=== PATIENT | female | born 1945 | race Caucasian/White ===

== ENCOUNTER 2016-11-25 19:00 | Inpatient (IN) | payer MEDICARE, OTHER ==
[2016-11-25] MEDS ORDERED: Acetaminophen TAB* 325 MG PO ONE (19:29)
[2016-11-25] MEDS ORDERED: NS 0.9% 1000 ML* 1,000 ML IV SCH ×2 (19:30→21:30)
[2016-11-25 19:45] LABS: Hematocrit 43 % (35-47); Hemoglobin 14.4 g/dl (12.0-16.0); Mean Corpuscular HGB Conc 34 g/dl (31-36); Mean Corpuscular Hemoglobin 30 pg (27-31); Mean Corpuscular Volume 91 fL (80-97); Mean Platelet Volume 8 um3 (7.4-10.4); Red Blood Count 4.73 10^6/ul (4.0-5.4); Red Cell Distribution Width 13 % (10.5-15); White Blood Count 6.1 10^3/ul (3.5-10.8)
--- NOTE | 2016-11-25 20:11 | RAD ---
HISTORY: Cough COMPARISONS: November 02, 2009 VIEWS: 2: Frontal dual-energy and lateral views of the chest. FINDINGS: CARDIOMEDIASTINAL SILHOUETTE: The cardiomediastinal silhouette is normal. BRENDAN: The brendan are normal. PLEURA: The costophrenic angles are sharp. No pleural abnormalities are noted. LUNG PARENCHYMA: The lungs are clear. ABDOMEN: The upper abdomen is clear. There is no subphrenic gas. BONES AND SOFT TISSUES: No bone or soft tissue abnormalities are noted. OTHER: None. IMPRESSION: NO ACTIVE CARDIOPULMONARY DISEASE.
[2016-11-25 20:12] LABS: BUN/Creatinine Ratio 13.9 (8-20); Calcium 10.7 mg/dL (8.6-10.3); EGFR African American 59.8 (>60); EGFR Non-African American 46.5 (>60); Globulin 3.5 g/dL (2-4); Magnesium 2.1 mg/dL (1.9-2.7); Total Bilirubin 0.8 mg/dL (0.2-1.0); Total Protein 7.5 g/dL (6.4-8.9)
[2016-11-25 20:22] LABS: Troponin I 0.28 ng/mL (<0.04)
[2016-11-25 20:34] LABS: TSH (Thyroid Stimulating Horm) 3.6 mcIU/mL (0.34-5.60)
--- NOTE | 2016-11-25 20:49 | ED ---
Cole Taveras Benjamin, scribed for Ashok Carrillo MD on 11/25/16 at 1932 . Complex/Multi-Sys Presentation - HPI Summary HPI Summary: 71yo female c/o having chills for 2 days. Pt had chills episodically initially, but now is constant and continuous. Per daughter, pt also has dry cough, and had difficulty staying awake in the past 2 dasy. Denies any other symptoms or pain. Pt took baby [employer]. Recent Hx of cardiac stent placement after episode of [place] on November 13, 2016. - History Of Current Complaint Chief Complaint: EDGeneral Time Seen by Provider: 11/25/16 19:20 Hx Obtained From: Patient, Family/Talend Etl Developer - daughter Onset/Duration: Gradual Onset, Lasting Days - 2 days, Still Present Timing: Constant Severity Currently: Mild Severity Initially: Mild Location: Negative Aggravating Factor(s): none Alleviating Factor(s): none Associated Signs And Symptoms: Positive: Cough - dry, Other - chills - Allergies/Home Medications Allergies/Adverse Reactions: Allergies Allergy/AdvReac Type Severity Reaction Status Date / Time Statins AdvReac Severe See Comment Verified 07/28/15 16:45 Home Medications: Home Medications Insulin GLARGINE(*) [Lantus(*)] 40 units SUBCUT Q24H 11/25/16 [History Confirmed 11/25/16] PMH/Surg Hx/FS Hx/Imm Hx Endocrine/Hematology History: Reports: Hx Diabetes - uncontrolled, untreated Denies: Hx Anemia Cardiovascular History: Reports: Hx Coronary Artery Disease, Hx Hypercholesterolemia, Hx Myocardial Infarction - x3 Denies: Hx Angina, Hx Hypertension, Hx Valvular Heart Disease Respiratory History: Denies: Hx Asthma, Hx Chronic Obstructive Pulmonary Disease (COPD) GI History: Denies: Hx Jaundice Musculoskeletal History: Denies: Hx Osteoporosis Sensory History: Reports: Hx Contacts or Glasses - to read Denies: Hx Hearing Aid Opthamlomology History: Reports: Hx Contacts or Glasses - to read Psychiatric History: Reports: Hx Depression - SAD - Cancer History Hx Chemotherapy: No Hx Radiation Therapy: No - Surgical History Surgery Procedure, Year, and Place: stent placed in heart, 2x, 2005,2006. 1993 hysterectomy. appendectomy 1982 Hx Anesthesia Reactions: No - Immunization History Date of Tetanus Vaccine: Unk Date of Influenza Vaccine: None Infectious Disease History: No Infectious Disease History: Denies: Traveled Outside the [place] in Last 30 Days - Family History Known Family History: Positive: Cardiac Disease, Diabetes - Social History Occupation: Retired Lives: With Family Alcohol Use: Rare Substance Use Type: Reports: None Smoking Status (MU): Never Smoked Tobacco Review of Systems Positive: Chills, Fatigue Eyes: Negative ENT: Negative Cardiovascular: Negative Positive: Cough Gastrointestinal: Negative Genitourinary: Negative Musculoskeletal: Negative Skin: Negative Neurological: Negative Psychological: Normal All Other Systems Reviewed And Are Negative: Yes Physical Exam Triage Information Reviewed: Yes Vital Signs On Initial Exam: Initial Vitals Temp Pulse Resp BP Pulse Ox 99.8 F 79 16 118/68 99 11/25/16 19:04 11/25/16 19:04 11/25/16 19:04 11/25/16 19:04 11/25/16 19:04 Vital Signs Reviewed: Yes Appearance: Positive: Well-Appearing, No Pain Distress Skin: Positive: Warm Head/Face: Positive: Normal Head/Face Inspection Eyes: Positive: EOMI, GLENDY ENT: Positive: Hearing grossly normal Neck: Positive: Supple, Nontender Respiratory/Lung Sounds: Positive: Clear to Auscultation, Breath Sounds Present Cardiovascular: Positive: RRR Abdomen Description: Positive: Nontender, Soft Bowel Sounds: Positive: Present Musculoskeletal: Positive: Strength/ROM Intact Neurological: Positive: Sensory/Motor Intact, Alert, Oriented to Person Place, Time Psychiatric: Positive: Affect/Mood Appropriate Diagnostics - Vital Signs Vital Signs Temp Pulse Resp BP Pulse Ox 11/25/16 19:21 78 13 98 11/25/16 19:19 124/65 11/25/16 19:08 99.8 F 79 16 118/68 99 11/25/16 19:04 99.8 F 79 16 118/68 99 - Laboratory Lab Results: Lab Results 11/25/16 11/25/16 11/25/16 Range/Units 19:38 19:38 19:38 WBC 6.1 (3.5-10.8) 10^3/ul RBC 4.73 (4.0-5.4) 10^6/ul Hgb 14.4 (12.0-16.0) g/dl Hct 43 (35-47) % MCV 91 (80-97) fL MCH 30 (27-31) pg MCHC 34 (31-36) g/dl RDW 13 (10.5-15) % Plt Count 251 (150-450) 10^3/ul MPV 8 (7.4-10.4) um3 Neut % (Auto) 79.6 (38-83) % Lymph % (Auto) 10.1 L (25-47) % [place] % (Auto) 9.0 (1-9) % Eos % (Auto) 0.4 (0-6) % Baso % (Auto) 0.9 (0-2) % Absolute Neuts (auto) 4.9 (1.5-7.7) 10^3/ul Absolute Lymphs (auto) 0.6 L (1.0-4.8) 10^3/ul Absolute Monos (auto) 0.6 (0-0.8) 10^3/ul Absolute Eos (auto) 0 (0-0.6) 10^3/ul Absolute Basos (auto) 0.1 (0-0.2) 10^3/ul Absolute Nucleated RBC 0.01 10^3/ul Nucleated RBC % 0.2 Sodium 131 L (133-145) mmol/L Potassium 5.0 (3.5-5.0) mmol/L Chloride 101 (101-111) mmol/L Carbon Dioxide 25 (22-32) mmol/L Anion Gap 5 (2-11) mmol/L BUN 16 (6-24) mg/dL Creatinine 1.15 H (0.51-0.95) mg/dL Est GFR ( Amer) 59.8 (>60) Est GFR (Non-Af Amer) 46.5 (>60) BUN/Creatinine Ratio 13.9 (8-20) Glucose 130 H (70-100) mg/dL Lactic Acid 1.0 (0.5-2.0) mmol/L Calcium 10.7 H (8.6-10.3) mg/dL Magnesium 2.1 (1.9-2.7) mg/dL Total Bilirubin 0.80 (0.2-1.0) mg/dL AST 19 (13-39) U/L ALT 21 (7-52) U/L Alkaline Phosphatase 75 (34-104) U/L Troponin I 0.28 H* (<0.04) ng/mL Total Protein 7.5 (6.4-8.9) g/dL Albumin 4.0 (3.2-5.2) g/dL Globulin 3.5 (2-4) g/dL Albumin/Globulin Ratio 1.1 (1-3) TSH 3.60 (0.34-5.60) mcIU/mL Result Diagrams: 11/25/16 19:38 11/25/16 19:38 Lab Statement: Any lab studies that have been ordered have been reviewed, and results considered in the medical decision making process. - Radiology CXR Xray Interpretation: No Acute Changes Radiology Interpretation Completed By: Radiologist - EKG 2021 Cardiac Rate: NL - 70bpm EKG Rhythm: Sinus Rhythm EKG Interpretation: inferior wall NJ, old Complex Multi-Symp Course/Dx Course Of Treatment: Discussed with Dr. hSaw (hospitalist) at 2044. - Diagnoses Provider Diagnoses: ACS (acute coronary syndrome) - Physician Notifications Instructed by Provider To: Admit As Inpatient Discharge - Discharge Plan Condition: Fair Disposition: ADMITTED TO [facility] The documentation as recorded by the Cole back Benjamin accurately reflects the service I personally performed and the decisions made by Lorena ashley David, MD.
[2016-11-25] MEDS ORDERED: Ondansetron INJ* 2 MG/ML VIAL IV PRN (21:18)
[2016-11-25] MEDS ORDERED: Dextrose 50% Syringe 50 ML* 25 GM/50 ML SYRINGE IV PUSH PRN (21:18)
[2016-11-25] MEDS ORDERED: NS 0.9% 1000 ML* 1,000 ML IV ONE (21:18)
[2016-11-25 21:48] LABS: C Reactive Protein 32.35 mg/L (< 5.00)
[2016-11-25 21:57] LABS: Urine Bacteria Absent (Absent); Urine Bilirubin Negative (Negative); Urine Glucose Negative (Negative); Urine Nitrite Negative (Negative)
[2016-11-25 22:11] LABS: Erythrocyte Sed Rate 45 mm/Hr (0-40)
[2016-11-25] MEDS: Heparin VIAL(*) 5000 UNITS/ML VIAL (FIVE THOUSAND) SUBCUT SCH (22:36)
--- NOTE | 2016-11-25 23:34 | HP ---
CC: Dr. Nicholas; Dr. Yap; Dr. Minaya; Dr. Verdin * HISTORY AND PHYSICAL: DATE OF ADMISSION: 11/25/16 PRIMARY CARE PROVIDER: Dr. Yap. ATTENDING PHYSICIAN WHILE IN THE HOSPITAL: Dr. Tin John * (report dictated by Evgeny Mcmillan NP). CONSULTING INFECTIOUS DISEASE: Dr. Verdin. CHIEF COMPLAINT: 1. Fatigue. 2. Weakness. HISTORY OF PRESENT ILLNESS: This is a 71-year-old female patient who on November 13 presented with STEMI, underwent an intervention to the RCA. I will refer you to Dr. Nicholas' cath report for details. She was discharged shortly after on the , been doing well. Over the last 72 hours, she has been having weakness, fatigue, just cannot get warm. On the two 90-degree days, she was covered up in blankets and could not get warm, having chills. She does state that she has had a cough. She says that she feels like she has been wheezing at times. She has not had any sore throat. She has not had any abdominal discomfort. She denied having any nausea, vomiting or diarrhea. Denies any chest pain or any orthopnea. She denied having any fluid in her lower extremities and denied having any pain in the lower extremities. She was concerned because of the weakness, so she came into the ER today. It was noted that her troponin was 0.28. Her EKG did have some T wave inversions which appeared to be new in leads II, III and aVF, but the patient ultimately called Dr. Singer today who felt that she should be evaluated in the ER. She denies any dysuria, no abdominal pain, and again she says she does not have any redness at her wrist site from where the cath was performed. She was evaluated and it was noted she had a fever of 101.7 here in the ED, and we were asked to evaluate for admission. PAST MEDICAL HISTORY: 1. CAD. 2. FL. 3. Diabetes. 4. Hyperlipidemia. PAST SURGICAL HISTORY: 1. She has had cardiac catheterization x3. 2. Hysterectomy. HOME MEDICATIONS: According to the discharge summary include: 1. Nitro 0.4 mg sublingual q.5 minutes p.r.n. chest pain. 2. According to the patient, she is taking Lantus 40 units subcu at bedtime. 3. Vitamin B12 1000 mcg p.o. daily. 4. Vitamin D3 2000 units p.o. daily. 5. Vitamin C 500 mg daily. 6. Vitamin B complex 1 tablet p.o. daily. 7. Turmeric 500 mg daily. 8. Protonix 40 mg daily. 9. Toprol XL 50 mg p.o. daily. 10. Lisinopril 5 mg p.o. daily. 11. Plavix 75 mg daily. 12. Aspirin 81 mg daily. ALLERGIES TO MEDICATIONS: STATINS. FAMILY HISTORY: Her mother had a history of colon cancer. Father's history is unknown. SOCIAL HISTORY: She does not smoke. Does not drink. Surrogate decision maker is her daughter and her neighbor. REVIEW OF SYSTEMS: There is a documented fever here. She did admit to having chills. There is no significant weight change. There is no double vision. She denied having any ear discharge. There was no rhinorrhea. No sore throat. No thyroid enlargement. Denies having any chest pain. There was no orthopnea , no nocturnal dyspnea. There was no abdominal pain. No nausea, no vomiting. No dysuria, no frequency. There was no seizure, no loss of consciousness. No pruritus and no skin ulcerations. Review of 14 systems completed and all others negative. PHYSICAL EXAMINATION GENERAL: At this time, Mrs. Neal is a 71-year-old female patient. She is sitting in the ER stretcher. She does not appear to be in any acute distress. VITAL SIGNS: Blood pressure 94/54, pulse 67, respirations 16, O2 sat 95%, temperature is 101.7. HEENT: Head is atraumatic. Eyes: EOMs intact. Sclerae is anicteric, not pale. Throat: Oral mucosa appears to be dry. No oropharyngeal erythema. NECK: Supple. LUNGS: Clear to auscultation. No wheezes, rales, or rhonchi. HEART: Sounds S1, S2. Regular rate and rhythm. No murmurs, rubs or gallops. ABDOMEN: Soft. It was flat. It was nontender. Bowel sounds present. EXTREMITIES: Pulses were 2+ throughout. She is able to move all 4 extremities with 5/5 strength. She does have a puncture site to the right wrist which is clean, dry and intact. There is no erythema. Had 5/5 strength. NEUROLOGIC: The patient is awake, alert, oriented x3. Tongue midline. Sales Coordinator are equal. No gross focal deficits. SKIN: The skin is grossly intact. DIAGNOSTIC STUDIES/LABORATORY DATA: The labs today revealed a WBC 6.1, RBC of 4.73, hemoglobin 14.4, hematocrit 43, platelet count of 251. Sodium 131, potassium 5.0, chloride of 101, bicarb 28, BUN 16, creatinine is 1.15. Her last creatinine was 0.9, she runs right around 1. Her glucose is 130, lactate 1.0, calcium 10.7, total mag 2.1, total bili 0.8. AST 19, ALT 21, alk phos 75. CK 33, CPK 1 which are all trending down. Troponin was 0.28. CRP is pending. Albumin of 4.0. TSH pending. She did have an EKG obtained today, which revealed a normal sinus rhythm with a rate of 70. She had T-wave inversions in II, III and aVF. When I reviewed the previous EKG , she had biphasic T waves and she had a little bit of elevation remaining on II , III and aVF. Otherwise, EKG appeared to be unchanged. Her cath report, I will refer you for details, but ultimately there was a stent placed in the RCA, it was a bare metal stent and she also had an LV-gram that showed EF of 49%. Old medical records were reviewed. She had a chest x-ray obtained today, which showed no active cardiopulmonary disease. I did not appreciate any infiltrates under my review. Old medical records were reviewed. ASSESSMENT AND PLAN: Mrs. Neal is a 71-year-old female patient coming into the ER today. She is about 2 weeks post cath, now found to have a fever, complaining of weakness. She will be admitted under inpatient status for: 1. Sepsis of unknown etiology. Again, I do not have an active source at this point, but I do think we need to get blood cultures. We need to get urine as well. I am going to give her one dose of Zosyn after the cultures. Her blood pressures are actually now, the last one was 87/50. I am going to give her 2 liters of fluids. She got one here in the ER already. I am going to give her another one and then normal saline at 100. We will panculture her. I did touch base with ID who will evaluate the patient tomorrow. We will place her in the ICU under close observation and care and we will continue to follow. 2. Coronary artery disease. I am going to continue her Plavix and aspirin. Holding the lisinopril. We are going to switch her beta conchis from the sustained release to the IR release with hold parameters. 3. History of diabetes. She will be on Lantus and Lispro sliding scale. 4. Hyperlipidemia. She can follow with her primary. 5. DVT prophylaxis. She will be placed on heparin subcu. 6. Code status. Full code. 7. Fluids, electrolytes and nutrition. She can have a consistent carb diet. TIME SPENT: Time spent on the admission, 60 minutes; greater than half the time spent [id number] with the patient obtaining my history and physical, other half the time spent going over the plan of care with the patient and implementing the plan of care. I did discuss the plan of care with my attending, Dr. John; he is in agreement. EVGENY MCMILLAN, JARROD [id number]/CPS #: [id number] MARCELLA
[2016-11-25] MEDS: Insulin GLARGINE(*) 1 UNITS UNIT SUBCUT SCH (23:38)
[2016-11-26] MEDS: Acetaminophen TAB* 325 MG PO PRN ×2 (01:47→06:28)
[2016-11-26 04:57] LABS: Hematocrit 41 % (35-47); Hemoglobin 13.8 g/dl (12.0-16.0); Mean Corpuscular HGB Conc 34 g/dl (31-36); Mean Corpuscular Hemoglobin 31 pg (27-31); Mean Corpuscular Volume 91 fL (80-97); Mean Platelet Volume 8 um3 (7.4-10.4); Red Blood Count 4.49 10^6/ul (4.0-5.4); Red Cell Distribution Width 13 % (10.5-15); White Blood Count 7.8 10^3/ul (3.5-10.8)
[2016-11-26 05:08] LABS: BUN/Creatinine Ratio 15.7 (8-20); Calcium 9.5 mg/dL (8.6-10.3); EGFR African American 68.7 (>60); EGFR Non-African American 53.4 (>60); Potassium 4.1 mmol/L (3.5-5.0)
[2016-11-26] MEDS: Heparin VIAL(*) 5000 UNITS/ML VIAL (FIVE THOUSAND) SUBCUT SCH ×3 (06:20→21:13)
[2016-11-26] MEDS: CMCS Pantoprazole TAB (NF) 40 MG TAB PO SCH ×2 (08:35→09:31)
[2016-11-26] MEDS: Insulin LISPRO* 1 UNITS UNIT SUBCUT SCH ×3 (08:43→18:19)
[2016-11-26] MEDS: Aspirin Low Dose CHEW TAB* 81 MG PO SCH (09:28)
[2016-11-26] MEDS: Metoprolol Tartrate TAB* 25 MG PO SCH ×2 (09:28→19:53)
[2016-11-26] MEDS: Clopidogrel TAB* 75 MG PO SCH (09:28)
--- NOTE | 2016-11-26 10:02 | PN ---
Subjective Date of Service: 11/26/16 Interval History: Pt is feeling much better today than yesterday. She states her mental status is dramatically better (much more alert and appropriate speech). She denies any chest pain, SOB, cough, dysuria, diarrhea. Her wrist site for her catheterization earlier this month has not been painful or concerning. Objective Active Medications: Acetaminophen (Tylenol Tab*) 650 mg PO Q4H PRN PRN Reason: FEVER/PAIN Last Admin: 11/26/16 06:28 Dose: 650 mg Aspirin (Aspirin Low Dose Tab*) 81 mg PO DAILY [facility] Last Admin: 11/26/16 09:28 Dose: 81 mg Clopidogrel Bisulfate (Plavix Tab*) 75 mg PO DAILY [facility] Last Admin: 11/26/16 09:28 Dose: 75 mg Dextrose (D50w Syringe 50 Ml*) 12.5 gm IV PUSH .FOR FS < 60 - SS PRN PRN Reason: FS < 60 Heparin Sodium (Porcine) (Heparin Vial(*)) 5,000 units SUBCUT Q8HR [facility] Last Admin: 11/26/16 06:20 Dose: 5,000 units Sodium Chloride (Ns 0.9% 1000 Ml*) 1,000 mls @ 100 mls/hr IV PER RATE [facility] Last Admin: 11/26/16 09:02 Dose: 100 mls/hr Insulin Glargine (Lantus(*)) 40 units SUBCUT Q24H [facility] Last Admin: 11/25/16 23:38 Dose: 40 units Insulin Human Lispro (Humalog*) 0 units SUBCUT AC [facility] PRN Reason: Protocol Last Admin: 11/26/16 08:43 Dose: Not Given Metoprolol Tartrate (Lopressor Tab*) 25 mg PO BID [facility] Last Admin: 11/26/16 09:28 Dose: Not Given Ondansetron HCl (Zofran Inj*) 4 mg IV Q6H PRN PRN Reason: NAUSEA Pantoprazole Sodium (Protonix Tab (Nf)) 40 mg PO 0730 [facility] Last Admin: 11/26/16 09:31 Dose: 40 mg Vital Signs 11/25/16 11/25/16 11/25/16 21:19 21:30 21:37 Temperature 101.7 F Pulse Rate 64 65 Respiratory 15 14 Rate Blood Pressure 69/51 87/53 (mmHg) O2 Sat by Pulse 96 95 Oximetry 11/25/16 11/25/16 11/25/16 21:40 22:00 22:04 Temperature 101.7 F Pulse Rate 62 60 63 Respiratory 13 16 19 Rate Blood Pressure 83/53 84/53 (mmHg) O2 Sat by Pulse 95 97 97 Oximetry 11/25/16 11/25/16 11/25/16 22:08 22:16 22:30 Temperature 98.8 F Pulse Rate 72 64 Respiratory 18 11 Rate Blood Pressure 93/55 90/56 93/55 (mmHg) O2 Sat by Pulse 100 98 Oximetry 11/25/16 11/25/16 11/25/16 22:52 23:00 23:06 Temperature Pulse Rate 66 80 Respiratory 18 14 21 Rate Blood Pressure 88/51 102/60 (mmHg) O2 Sat by Pulse 98 98 Oximetry 11/25/16 11/25/16 11/25/16 23:23 23:24 23:30 Temperature Pulse Rate 64 Respiratory 10 12 Rate Blood Pressure 93/56 (mmHg) O2 Sat by Pulse 97 Oximetry 11/25/16 11/26/16 11/26/16 23:41 00:00 00:01 Temperature 99.5 F Pulse Rate 73 Respiratory 12 16 Rate Blood Pressure 111/57 (mmHg) O2 Sat by Pulse 97 Oximetry 11/26/16 11/26/16 11/26/16 00:30 00:51 00:52 Temperature Pulse Rate 68 66 65 Respiratory 14 24 24 Rate Blood Pressure 99/64 159/72 (mmHg) O2 Sat by Pulse 98 94 93 Oximetry 11/26/16 11/26/16 11/26/16 01:00 01:30 02:00 Temperature Pulse Rate Respiratory 20 22 Rate Blood Pressure 138/69 105/55 121/74 (mmHg) O2 Sat by Pulse Oximetry 11/26/16 11/26/16 11/26/16 02:01 02:30 03:00 Temperature Pulse Rate 80 82 Respiratory 23 21 Rate Blood Pressure 129/72 135/65 (mmHg) O2 Sat by Pulse 97 95 94 Oximetry 11/26/16 11/26/16 11/26/16 03:30 04:00 04:30 Temperature Pulse Rate 79 80 80 Respiratory 16 32 31 Rate Blood Pressure 130/63 128/65 122/60 (mmHg) O2 Sat by Pulse 94 93 93 Oximetry 11/26/16 11/26/16 11/26/16 05:00 05:30 06:00 Temperature 100.0 F Pulse Rate 84 79 77 Respiratory 24 27 31 Rate Blood Pressure 123/59 115/59 112/57 (mmHg) O2 Sat by Pulse 93 93 92 Oximetry 11/26/16 11/26/16 11/26/16 07:00 07:30 08:00 Temperature 101.2 F Pulse Rate 75 74 74 Respiratory 34 23 16 Rate Blood Pressure 107/58 111/55 (mmHg) O2 Sat by Pulse 93 93 93 Oximetry 11/26/16 11/26/16 08:18 09:00 Temperature Pulse Rate 66 Respiratory 17 26 Rate Blood Pressure 88/51 93/51 (mmHg) O2 Sat by Pulse 93 Oximetry Oxygen Devices in Use Now: None Appearance: Elderly female sitting in a chair, NAD Eyes: No Scleral Icterus Ears/Nose/Mouth/Throat: Mucous Membranes Moist Respiratory: Symmetrical Chest Expansion and Respiratory Effort, Clear to Auscultation Cardiovascular: NL Sounds; No Murmurs; No JVD, RRR, No Edema Abdominal: NL Sounds; No Tenderness; No Distention Extremities: No Clubbing, Cyanosis Skin: No Rash or Ulcers, No Nodules or Sclerosis Neurological: Alert and Oriented x 3 Result Diagrams: 11/26/16 04:45 11/26/16 04:45 Additional Lab and Data: Lab Results 11/25/16 11/25/16 11/25/16 Range/Units 19:38 19:38 19:38 WBC 6.1 (3.5-10.8) 10^3/ul RBC 4.73 (4.0-5.4) 10^6/ul Hgb 14.4 (12.0-16.0) g/dl Hct 43 (35-47) % MCV 91 (80-97) fL MCH 30 (27-31) pg MCHC 34 (31-36) g/dl RDW 13 (10.5-15) % Plt Count 251 (150-450) 10^3/ul MPV 8 (7.4-10.4) um3 Neut % (Auto) 79.6 (38-83) % Lymph % (Auto) 10.1 L (25-47) % [place] % (Auto) 9.0 (1-9) % Eos % (Auto) 0.4 (0-6) % Baso % (Auto) 0.9 (0-2) % Absolute Neuts (auto) 4.9 (1.5-7.7) 10^3/ul Absolute Lymphs (auto) 0.6 L (1.0-4.8) 10^3/ul Absolute Monos (auto) 0.6 (0-0.8) 10^3/ul Absolute Eos (auto) 0 (0-0.6) 10^3/ul Absolute Basos (auto) 0.1 (0-0.2) 10^3/ul Absolute Nucleated RBC 0.01 10^3/ul Nucleated RBC % 0.2 Sodium 131 L (133-145) mmol/L Potassium 5.0 (3.5-5.0) mmol/L Chloride 101 (101-111) mmol/L Carbon Dioxide 25 (22-32) mmol/L Anion Gap 5 (2-11) mmol/L BUN 16 (6-24) mg/dL Creatinine 1.15 H (0.51-0.95) mg/dL Est GFR ( Amer) 59.8 (>60) Est GFR (Non-Af Amer) 46.5 (>60) BUN/Creatinine Ratio 13.9 (8-20) Glucose 130 H (70-100) mg/dL Lactic Acid 1.0 (0.5-2.0) mmol/L Calcium 10.7 H (8.6-10.3) mg/dL Magnesium 2.1 (1.9-2.7) mg/dL Total Bilirubin 0.80 (0.2-1.0) mg/dL AST 19 (13-39) U/L ALT 21 (7-52) U/L Alkaline Phosphatase 75 (34-104) U/L Troponin I 0.28 H* (<0.04) ng/mL Total Protein 7.5 (6.4-8.9) g/dL Albumin 4.0 (3.2-5.2) g/dL Globulin 3.5 (2-4) g/dL Albumin/Globulin Ratio 1.1 (1-3) TSH 3.60 (0.34-5.60) mcIU/mL Microbiology and Other Data: Microbiology 11/25/16 21:53 Influenza Types A,B Antigen (CAITLIN) - Final Nasal Specimen received for Influenza A/B Molecular testing Assess/Plan/Problems-Billing Ms Neal is a 71 yo F who has a h/o STEMI 11/13/16 s/p stenting and type II DM who presented to the ER with c/o chills, rigors and weakness and was found to be septic (SOFA score of 3 on admission) secondary to an unclear cause. - Patient Problems (1) Sepsis Current Visit: Yes Status: Acute Comment: The patient was septic on admission with a SOFA score of 3 (1pt each for elevated creatinine, AMS and hypotension). This AM her SOFA score is 1. The etiology of her sepsis is not clear. While the UA is abnormal she does not have dysuria and there were no bacteria seen in the UA. CXR negative. BC are pending. She states she has previously had lyme disease and been treated without subsequent issues. She questions if lyme may be a possiblity (she had a tick but was able to brush it off without too much difficulty)-will send lyme serology. I am most susicious her sepsis is secondary to a viral illness. Will hold off on further Abx for now and await ID consult. Her AMS has resolved. She remains slightly hypotensive though asymptomatic. (2) Elevated troponin Current Visit: Yes Status: Acute Code(s): R74.8 - ABNORMAL LEVELS OF OTHER SERUM ENZYMES SNOMED Code(s): 704992173 Comment: Secondary to a type II NSTEMI (demand ischemia) from sepsis. The patient is without chest pain. Will touch base with Dr. Nicholas to let him know she is back and ask if he would like any further work up. (3) Type II diabetes mellitus Current Visit: Yes Status: Acute Comment: Blood sugars are under fair control. Continue lantus 40 units SQ daily and lispro sliding scale. (4) CAD (coronary artery disease) Current Visit: Yes Status: Acute Code(s): I25.10 - ATHSCL HEART DISEASE OF [place] CORONARY ARTERY W/O ANG PCTRS SNOMED Code(s): 16956632 Comment: Continue ASA, plavix and metoprolol (hold parameters in place as pt is hypotensive). (5) DVT prophylaxis Current Visit: Yes Status: Acute Code(s): VAS3488 - SNOMED Code(s): 164026997 Comment: heparin (6) Full code status Current Visit: Yes Status: Acute Code(s): Z78.9 - OTHER SPECIFIED HEALTH STATUS SNOMED Code(s): 263157493
--- NOTE | 2016-11-26 12:53 | ECHO ---
Patient: WAN PHAM [facility] Rec#: [id number] : 1945 Date: 11/26/2016 Age: 71y Height: 167.64 cm / 66.0 in Weight: 65.77 kg / 145.0 lbs Sex: F BSA: 1.74 Room#: ICU 11 Admit Date#: 11/25/2016 Type: Inpatient Referring: Evgeny Mcmillan NP Reading: Marium Singer MD Bread Packer: Mary Cardona,ALEXANDRECS,RDMS CC: Carli Yap MD Transthoracic Echocardiogram Indication: Elevated Troponin, MS BP: 107/58 HR: 75 Rhythm: NSR Findings History: S/P STEMI and PCI on 11/13/16. DM, HLD Technical Comments: The study quality is good. COmpleted 0830 Left Ventricle: The left ventricular chamber size is normal. Mild concentric left ventricular hypertrophy is observed. There is a focal wall motion abnormality present.Posterior wall is akinetic as seen on parasternal views. Inferior posterior wall akinesis and hypokinesis at the base extending to the septum as seen in the apical views. The estimated ejection fraction is 40-45%. There is no consistent Doppler evidence of clinically significant diastolic dysfunction. Left Atrium: The left atrial chamber size is normal. Right Ventricle: The right ventricular chamber size and systolic function are within normal limits. Right Atrium: The right atrial cavity size is normal. Aortic Valve: The aortic valve is trileaflet. The aortic valve leaflets are mildly thickened. There is no evidence of aortic regurgitation. There is no evidence of aortic stenosis. Mitral Valve: The mitral valve leaflets appear normal. There is mild mitral regurgitation. There is no evidence of mitral stenosis. Tricuspid Valve: The tricuspid valve leaflets are normal. There is trace tricuspid regurgitation. No pulmonary hypertension is noted. Pulmonic Valve: There is no evidence of pulmonic valve thickening. There is a trace pulmonic regurgitation. Pericardium: There is no significant pericardial effusion. Aorta: The aortic root appears normal. There is no dilatation of the aortic arch. Pulmonary Artery: The main pulmonary artery is not well visualized. Venous: The inferior vena cava is not visualized. Conclusions Mild concentric left ventricular hypertrophy is observed. Inferior posterior wall akinesis extending to the septum. The estimated ejection fraction is 40-45%. The right ventricular chamber size and systolic function are within normal limits. The aortic valve leaflets are mildly thickened with normal function. There is mild mitral regurgitation. There is trace tricuspid regurgitation. Compared with echo of 05/22/11, posterior/inferior wall motion abnormality is new. Measurements Name Value Normal Range RVIDd (AP) 2D 2.9 cm (0.9 - 2.6) RVDdMajor (2D) 2.7 cm (2.2 - 4.4) RAd ISD 4CH 4.2 cm (3.4 - 4.9) RA (A4C)W 2.8 cm (2.9 - 4.6) IVSd (2D) 0.9 cm (0.6 - 1) LVPWd (2D) 0.9 cm (0.6 - 1) LVIDd (2D) 4.8 cm (3.6 - 5.4) LVIDs (2D) 3.8 cm - LV FS (2D) 20 % (25 - 45) Aortic Annulus 2.2 cm (1.4 - 2.6) Ao root diameter (2D) 2.8 cm (2.1 - 3.5) Ascending Ao 2.7 cm (2.1 - 3.4) Aortic arch 2.6 cm (1.8 - 3.4) LA dimension (AP) 2D 3.7 cm (2.3 - 3.8) LAd ISD 4CH 4.4 cm (2.9 - 5.3) LA ISD 4CH W 3 cm (2.5 - 4.5) Name Value Normal Range LA ESV SP 4CH (A/L) 24.95 ml - LA ESV SP 2CH (A/L) 49.47 ml - LA ESV BP (A/L) 38.47 ml - LA ESV BP (A/L) index 22 ml/m2 - LA ESV SP 4CH (MOD) 23.83 ml - LA ESV SP 2CH (MOD) 46.91 ml - Name Value Normal Range MV E-wave Vmax 0.7 m/sec - MV deceleration time 216 msec - MV A-wave Vmax 0.8 m/sec - MV E:A ratio 0.8 ratio - P. vein S-wave Vmax 0.7 m/sec - P. vein D-wave Vmax 0.5 m/sec - P. vein S:D Vmax ratio 1.4 ratio - P. vein A-wave duration 121.1 msec - LV septal e' Vmax 0.07 m/sec - LV lateral e' Vmax 0.09 m/sec - LV E:e' septal ratio 10 ratio - LV E:e' lateral ratio 8 ratio - Name Value Normal Range AV Vmax 1.6 m/sec - AV VTI 26.6 cm - AV peak gradient 10 mmHg - AV mean gradient 5.7 mmHg - LVOT Vmax 1.3 m/sec - LVOT VTI 23.7 cm - LVOT peak gradient 7 mmHg - LVOT mean gradient 3.7 mmHg - LANDON Vmax 0.8 m/sec - Name Value Normal Range TR Vmax 2.14 m/sec - TR peak gradient 18 mmHg - RAP 3 mmHg - RVSP 21 mmHg - Name Value Normal Range PV Vmax 0.9 m/sec - PV peak gradient 3.2 mmHg -
[2016-11-26] MEDS ORDERED: cefTRIAXone VIAL(*) 1,000 MG in NS 0.9% 50 ML* 50 ML IVPB SCH (16:00)
--- NOTE | 2016-11-26 17:22 | CONS ---
CONSULTATION REPORT: DATE OF CONSULT: 11/26/16 REQUESTING PHYSICIAN: Dr. Malcolm. CONSULTING SERVICE: Infectious Disease. REASON FOR CONSULTATION: Fever, chills. IMPRESSION: 1. Encephalopathy present on admission, resolved. 2. Severe sepsis present on admission, resolving. 3. Elevated troponin in the setting of sepsis. She did have an ST elevation myocardial infarction about 2 weeks ago and PCI. 4. Fever, chills, and encephalopathy without any other focal signs or symptoms. She has abnormal urinalysis with blood and leukocyte esterase, no urinary symptoms though. A urinary tract infection could be possible. She could be bacteremic. Both cultures are pending. Her radial vascular access site is benign and there is no evidence of infection there. She has no other focal signs or symptoms. At this time of the year, tick-borne infection is a consideration, but she has had no rash, myalgia, or arthralgia which is a little atypical for Lyme. This could also be a viral infection. Noninfectious causes like Jennifer syndrome have been considered, but she has no chest pain and no pericardial effusion, so that seems less likely, though the time course is appropriate. 5. Coronary artery disease with a history of multiple stents, most recently a right coronary artery lesion. We have considered hospital-acquired infection due to recent hospitalization, but chest x-ray is unrevealing. She has no cough. No previous IV sites are bothering her to suggest infected phlebitis. RECOMMENDATIONS: We will await her blood and urine cultures, add a procalcitonin, follow her symptoms here which have improved markedly with hydration. Her mental status is nearly back to baseline and she has no focal complaints. HISTORY OF PRESENT ILLNESS: This is a 71-year-old woman with coronary artery disease who had ST elevation VA 2 weeks ago and a cardiac catheterization on November 14 of the right radial artery and placement of a right coronary artery bare metal stent. She was discharged home feeling well and then about the end of last week, started to be more sleepy. Her daughter is visiting from [place] and noticed her sleeping more until the point that over the weekend she became difficult to arouse and in fact could not arouse her, so was brought to the ER where she was febrile. She is hypotensive to the 80s and even the high 60s initially. She had a temperature of 38.3. She was started on IV fluids. She had a dose of Zosyn. She had influenza PCR that was negative. She had urinalysis as described above. No leukocytosis. Troponin of 0.2, CRP of 32, creatinine of 1.1. She was given aggressive fluid resuscitation and this morning she is more awake, she is interactive and answering questions. She and her daughter feel like she is back to her baseline, mental status drake. She has no headache, sinus symptoms, sore throat, cough, trouble breathing, abdominal pain, nausea, vomiting, diarrhea, dysuria, or urinary frequency. No myalgia and no rash. She does spend time outdoors. She has had ticks on her over the last few weeks. She has had Lyme in the past that feels different to her, though at that time she had more prominent musculoskeletal complaints as well as Blas's palsy. She has had no trips out of the area and no sick contacts. She denies chest pain. She had a transthoracic echocardiogram that showed no pericardial effusion. PAST MEDICAL HISTORY: 1. Coronary artery disease, status post PCI including stents to the right coronary and stent in the first diagonal branch of LAD and an LAD stent. 2. Hyperlipidemia. 3. Diabetes. 4. Status post hysterectomy. MEDICATIONS: 1. Tylenol. 2. Aspirin. 3. Plavix. 4. Pantoprazole. ALLERGIES: STATIN. FAMILY HISTORY: No recurrent infections or tuberculosis. SOCIAL HISTORY: She lives in [place]. Her daughter is visiting. No pets. She spend time outdoors. No travel. No sick contacts. REVIEW OF SYSTEMS: A full review of systems was negative except as noted above. PHYSICAL EXAM: Vital Signs: Temperature is 37.5, heart rate 65, respiratory rate 19, blood pressure 90/50, O2 sat 97% on room air. General: She is awake, not in distress. Neurologic: She is oriented x3. Follows all commands. Cranial nerves II through XII are intact. Strength is 5/5 in the biceps, triceps, wrist flexors and extensors, quadriceps, tibialis anterior, and gastrocnemius bilaterally. Sensation is intact to light touch in the upper and lower extremities bilaterally. HEENT: There is no conjunctival hemorrhage. Oropharynx without lesions. Neck: Supple without nuchal rigidity. Lymph Nodes : There is no cervical, supraclavicular, inguinal, axillary, or epitrochlear lymphadenopathy. Heart: Regular rate and rhythm without murmurs, rubs, or gallops. Lungs: Clear to auscultation bilaterally. Abdomen: Soft, nontender , and nondistended without hepatosplenomegaly. There is bowel sounds present. Skin: There is no rash or splinter hemorrhages. Musculoskeletal: There is no spine tenderness to palpation or joint synovitis. DIAGNOSTIC STUDIES/LAB DATA: Urinalysis shows blood and leukocyte esterase. White blood cell count 7, hemoglobin 13, platelets 233,000. Creatinine is 1.0. Please see impressions and recommendations outlined above, which I have discussed with Dr. Malcolm. Thank you for asking me to see Ms. Neal in consultation. [id number]/[facility] #: [id number] [facility]
[2016-11-26] MEDS: Insulin GLARGINE(*) 1 UNITS UNIT SUBCUT SCH (21:13)
[2016-11-27] MEDS: Heparin VIAL(*) 5000 UNITS/ML VIAL (FIVE THOUSAND) SUBCUT SCH ×2 (05:35→16:12)
[2016-11-27] MEDS: Insulin LISPRO* 1 UNITS UNIT SUBCUT SCH ×2 (08:34→14:45)
[2016-11-27] MEDS: Aspirin Low Dose CHEW TAB* 81 MG PO SCH (09:46)
[2016-11-27] MEDS: Metoprolol Tartrate TAB* 25 MG PO SCH (09:46)
[2016-11-27] MEDS: Clopidogrel TAB* 75 MG PO SCH (09:46)
--- NOTE | 2016-11-27 11:51 | PN ---
Subjective Date of Service: 11/27/16 Interval History: Pt is feeling well today. She is worried about going home and having the infection rebound. She has no CP or SOB. No abdominal pain. Objective Active Medications: Acetaminophen (Tylenol Tab*) 650 mg PO Q4H PRN PRN Reason: FEVER/PAIN Last Admin: 11/26/16 06:28 Dose: 650 mg Aspirin (Aspirin Low Dose Tab*) 81 mg PO DAILY [facility] Last Admin: 11/27/16 09:46 Dose: 81 mg Clopidogrel Bisulfate (Plavix Tab*) 75 mg PO DAILY [facility] Last Admin: 11/27/16 09:46 Dose: 75 mg Dextrose (D50w Syringe 50 Ml*) 12.5 gm IV PUSH .FOR FS < 60 - SS PRN PRN Reason: FS < 60 Heparin Sodium (Porcine) (Heparin Vial(*)) 5,000 units SUBCUT Q8HR [facility] Last Admin: 11/27/16 05:35 Dose: 5,000 units Sodium Chloride (Ns 0.9% 1000 Ml*) 1,000 mls @ 100 mls/hr IV PER RATE [facility] Last Admin: 11/26/16 09:02 Dose: 100 mls/hr Ceftriaxone Sodium 1,000 mg/ (Sodium Chloride) 50 mls @ 200 mls/hr IVPB Q24H [facility] Last Admin: 11/26/16 18:20 Dose: 200 mls/hr Insulin Glargine (Lantus(*)) 40 units SUBCUT Q24H [facility] Last Admin: 11/26/16 21:13 Dose: 40 units Insulin Human Lispro (Humalog*) 0 units SUBCUT AC [facility] PRN Reason: Protocol Last Admin: 11/27/16 08:34 Dose: Not Given Metoprolol Tartrate (Lopressor Tab*) 25 mg PO BID [facility] Last Admin: 11/27/16 09:46 Dose: 25 mg Ondansetron HCl (Zofran Inj*) 4 mg IV Q6H PRN PRN Reason: NAUSEA Pantoprazole Sodium (Protonix Tab (Nf)) 40 mg PO 0730 [facility] Last Admin: 11/26/16 09:31 Dose: 40 mg Vital Signs 11/26/16 11/26/16 11/26/16 12:57 15:34 19:37 Temperature 98.0 F 98.1 F 98.3 F Pulse Rate 67 63 60 Respiratory 20 20 20 Rate Blood Pressure 100/61 86/49 96/50 (mmHg) O2 Sat by Pulse 98 96 99 Oximetry 11/26/16 11/26/16 11/27/16 20:00 23:51 04:05 Temperature 98.3 F 99.0 F Pulse Rate 64 62 Respiratory 20 16 16 Rate Blood Pressure 99/54 102/54 (mmHg) O2 Sat by Pulse 98 98 Oximetry 11/27/16 07:36 Temperature 98.8 F Pulse Rate 58 Respiratory 16 Rate Blood Pressure 91/56 (mmHg) O2 Sat by Pulse 97 Oximetry Oxygen Devices in Use Now: None Appearance: Elderly female sitting up in bed, NAD Eyes: No Scleral Icterus Ears/Nose/Mouth/Throat: Mucous Membranes Moist Respiratory: Symmetrical Chest Expansion and Respiratory Effort, Clear to Auscultation Cardiovascular: NL Sounds; No Murmurs; No JVD, RRR, No Edema Abdominal: NL Sounds; No Tenderness; No Distention Extremities: No Clubbing, Cyanosis Skin: No Rash or Ulcers, No Nodules or Sclerosis Neurological: Alert and Oriented x 3 Result Diagrams: 11/26/16 04:45 11/26/16 04:45 Additional Lab and Data: Lab Results 11/25/16 11/25/16 11/25/16 Range/Units 19:38 19:38 19:38 WBC 6.1 (3.5-10.8) 10^3/ul RBC 4.73 (4.0-5.4) 10^6/ul Hgb 14.4 (12.0-16.0) g/dl Hct 43 (35-47) % MCV 91 (80-97) fL MCH 30 (27-31) pg MCHC 34 (31-36) g/dl RDW 13 (10.5-15) % Plt Count 251 (150-450) 10^3/ul MPV 8 (7.4-10.4) um3 Neut % (Auto) 79.6 (38-83) % Lymph % (Auto) 10.1 L (25-47) % [place] % (Auto) 9.0 (1-9) % Eos % (Auto) 0.4 (0-6) % Baso % (Auto) 0.9 (0-2) % Absolute Neuts (auto) 4.9 (1.5-7.7) 10^3/ul Absolute Lymphs (auto) 0.6 L (1.0-4.8) 10^3/ul Absolute Monos (auto) 0.6 (0-0.8) 10^3/ul Absolute Eos (auto) 0 (0-0.6) 10^3/ul Absolute Basos (auto) 0.1 (0-0.2) 10^3/ul Absolute Nucleated RBC 0.01 10^3/ul Nucleated RBC % 0.2 Sodium 131 L (133-145) mmol/L Potassium 5.0 (3.5-5.0) mmol/L Chloride 101 (101-111) mmol/L Carbon Dioxide 25 (22-32) mmol/L Anion Gap 5 (2-11) mmol/L BUN 16 (6-24) mg/dL Creatinine 1.15 H (0.51-0.95) mg/dL Est GFR ( Amer) 59.8 (>60) Est GFR (Non-Af Amer) 46.5 (>60) BUN/Creatinine Ratio 13.9 (8-20) Glucose 130 H (70-100) mg/dL Lactic Acid 1.0 (0.5-2.0) mmol/L Calcium 10.7 H (8.6-10.3) mg/dL Magnesium 2.1 (1.9-2.7) mg/dL Total Bilirubin 0.80 (0.2-1.0) mg/dL AST 19 (13-39) U/L ALT 21 (7-52) U/L Alkaline Phosphatase 75 (34-104) U/L Troponin I 0.28 H* (<0.04) ng/mL Total Protein 7.5 (6.4-8.9) g/dL Albumin 4.0 (3.2-5.2) g/dL Globulin 3.5 (2-4) g/dL Albumin/Globulin Ratio 1.1 (1-3) TSH 3.60 (0.34-5.60) mcIU/mL Microbiology and Other Data: Microbiology 11/25/16 21:53 Influenza Types A,B Antigen (CAITLIN) - Final Nasal Specimen received for Influenza A/B Molecular testing Assess/Plan/Problems-Billing Ms Neal is a 71 yo F who has a h/o STEMI 11/13/16 s/p stenting and type II DM who presented to the ER with c/o chills, rigors and weakness and was found to be septic (SOFA score of 3 on admission) secondary to an unclear cause. - Patient Problems (1) Sepsis Current Visit: Yes Status: Acute Comment: The patient was septic on admission with a SOFA score of 3-sepsis has now resolved. Her urine culture came up positive for E coli though the patient denies any symptoms of dysuria, frequency or urgency. While it is possible she was actually infected with the Ecoli I am still suspicous that she may have had a viral illness and the urine culture being positive is secondary to colonization. (2) Elevated troponin Current Visit: Yes Status: Acute Code(s): R74.8 - ABNORMAL LEVELS OF OTHER SERUM ENZYMES SNOMED Code(s): 201474116 Comment: Secondary to a type II NSTEMI (demand ischemia) from sepsis. The patient is without chest pain. Per Dr. Nicholas the patient does not need any further evaluation. (3) Type II diabetes mellitus Current Visit: Yes Status: Acute Comment: Blood sugars are under fair control. Increase lantus to 42 units SQ daily. (4) CAD (coronary artery disease) Current Visit: Yes Status: Acute Code(s): I25.10 - ATHSCL HEART DISEASE OF [place] CORONARY ARTERY W/O ANG PCTRS SNOMED Code(s): 54558674 Comment: Continue ASA, plavix and metoprolol-reduce dose due to soft BPs. (5) DVT prophylaxis Current Visit: Yes Status: Acute Code(s): HJY0464 - SNOMED Code(s): 536460159 Comment: SQ heparin (6) Full code status Current Visit: Yes Status: Acute Code(s): Z78.9 - OTHER SPECIFIED HEALTH STATUS SNOMED Code(s): 441887773
[2016-11-27] MEDS: CMCS Pantoprazole TAB (NF) 40 MG TAB PO SCH (14:17)
[2016-11-27 16:20] VITALS: BP 89/51
[2016-11-27] MEDS ORDERED: Metoprolol Tartrate TAB* 25 MG PO SCH (21:00)
[2016-11-27] MEDS ORDERED: Insulin GLARGINE(*) 1 UNITS UNIT SUBCUT SCH (22:00)
[2016-11-28 14:22] LABS: Lyme Disease IgG Ab WB Negative (Negative)
--- NOTE | 2016-11-29 03:08 | DS ---
CC: Dr. Yap* DISCHARGE SUMMARY: DATE OF ADMISSION: 11/25/16 DATE OF DISCHARGE: 11/27/16 PRIMARY CARE PROVIDER: Carli Yap MD PRINCIPAL DIAGNOSIS: Sepsis secondary to possible urinary tract infection versus viral illness. SECONDARY DIAGNOSES: 1. Coronary artery disease. 2. Type 2 diabetes. DISCHARGE MEDICATIONS: 1. Nitroglycerin 0.4 mg sublingual q.5 minutes p.r.n. chest pain. 2. Lantus 42 units subcutaneous daily. 3. Vitamin B12 1000 mcg p.o. daily. 4. Vitamin D3 2000 units p.o. daily. 5. Vitamin C 500 mg p.o. daily. 6. Vitamin B complex 1 tablet p.o. daily. 7. Turmeric 500 mg p.o. daily. 8. Protonix 40 mg p.o. daily. 9. Plavix 75 mg p.o. daily. 10. Aspirin 81 mg p.o. daily. 11. Metoprolol XL 12.5 mg p.o. daily (reduced dose)/ 12. Bactrim DS 1 tablet p.o. b.i.d. x5 more days. HOSPITAL COURSE: Ms. Neal is a 71-year-old female who was recently admitted in the beginning of November for ST elevation [place], where she underwent a drug-eluting stent placement. The patient has been doing fine up until 72 hours prior to admission when she began to have weakness, fatigue, and significant chills and rigors. The patient was also noted to be confused and very sleepy. The patient's daughter brought her to the emergency room for evaluation. In the ER, the etiology of the patient's sepsis was not completely clear; however, she was noted to be hypotensive and febrile up to 101.7. The patient was admitted and placed in the intensive care unit. She did receive 1 dose of IV Zosyn; however, antibiotic was then held and she only received IV fluids. By the day after admission, the patient was markedly improved; however , not completely back to normal. The patient's urine culture ultimately came back positive for snyder-sensitive E. coli. The patient prior to admission; however, was having no urinary tract infection symptoms. It is unclear if the E. coli found in the urine is a true pathogen or if it is just colonization. Given how sick the patient was on admission, the decision was made to go ahead and treat her for a full 7-day course of antibiotic therapy; however, the patient may have just had a viral illness. On admission, the patient's troponin was found to be slightly elevated at 0.28. This did trend down over the course of the next 24 hours to 0.22. It was felt that this likely represented demand ischemia related to the patient's sepsis and hypotension. On 11/27/16, the patient was felt to be stable for discharge home. FOLLOWUP CONCERNS: The patient is being discharged home today, 11/27/16. She is to follow up with Dr. Yap in the next 4 to 7 days. ACTIVITY LEVEL: As tolerated. DIET: Diabetic. CONDITION ON DISCHARGE: Stable. TIME SPENT: Thirty-five minutes was spent discharging this patient. [id number]/[facility] #: [id number] MARCELLA
== END 2016-11-27 19:38 | disposition home health service (06) | DRG 871 ==
LOC: ED 19:00 → ICU 21:12 → MEDTELE 11-26 09:52
PROVIDERS: ADMIT Hospitalist; ATTEND Hospitalist
DX: A41.9 Sepsis, unspecified organism (principal); I21.3 ST elevation (STEMI) myocardial infarction of unspecified site; G93.40 Encephalopathy, unspecified; I95.9 Hypotension, unspecified; I24.8 Other forms of acute ischemic heart disease; E11.65 Type 2 diabetes mellitus with hyperglycemia; N39.0 Urinary tract infection, site not specified; B34.9 Viral infection, unspecified; I25.10 Atherosclerotic heart disease of native coronary artery without angina pectoris; Z79.4 Long term (current) use of insulin; Z79.01 Long term (current) use of anticoagulants; Z79.82 Long term (current) use of aspirin; Z95.5 Presence of coronary angioplasty implant and graft; B96.20 Unspecified Escherichia coli [E. coli] as the cause of diseases classified elsewhere; E78.5 Hyperlipidemia, unspecified; Z90.710 Acquired absence of both cervix and uterus; Z88.8 Allergy status to other drugs, medicaments and biological substances; Z80.0 Family history of malignant neoplasm of digestive organs; E78.00 Pure hypercholesterolemia, unspecified; F32.9 Major depressive disorder, single episode, unspecified; Z82.49 Family history of ischemic heart disease and other diseases of the circulatory system; Z83.3 Family history of diabetes mellitus; R65.20 Severe sepsis without septic shock
CPT/HCPCS: 36415; 71020; 80048; 80053; 81003; 81015; 82550; 82553; 83605; 83735; 84145; 84443; 84484; 85025; 85652; 86140; 86617; 86618; 87040; 87077; 87086; 87186; 87502; 93005; 93306; A9270-GY; J0696; J1644; J2543